=== PATIENT | female | born 1955 | race Caucasian/White ===

== ENCOUNTER → 2019-07-27 | Day surgery (SDC) | payer BC ==
[~2019-07-27] MED LIST: Acetaminophen TAB* 325 MG ONE; BSS OPTH.SOL* BTL ONE; Buffered Lidocaine 1% SYRIN* 1 ML/SYRINGE INTRADERM ONE; Dexamethasone IV* 4 MG/ML 1 ML (4 MG) ONE; Lactated Ringers 1000 ML Bag* 1,000 ML IV SCH; Lidocaine 1% w EPI 1:100,000* MDV 20 ML VIAL ONE; Midazolam* 1 MG/ML 2 ML VIAL (2 MG) ONE; Propofol* 500 MG/50 ML BTL ONE; ceFAZolin 2 GM in NS PREMIX(*) 2 GM/100 ML BAG IVPB ONE; fentaNYL* 50 MCG/ML 2 ML VIAL (100 MCG VIAL) ONE
[2019-07-27 13:35] VITALS: BP 121/69
== END | disposition home or self-care (01) ==
LOC: OR 06:54
PROVIDERS: ATTEND Plastic Surgery
DX: Z41.1 Encounter for cosmetic surgery (principal); E03.9 Hypothyroidism, unspecified
CPT/HCPCS: A9270-GY; J0690; J1100; J2250; J2704; J3010